=== PATIENT | male | born 1955 | race Caucasian/White ===

== ENCOUNTER → 2017-12-17 | Outpatient (REF) | payer MEDICARE, OTHER ==
[2017-12-17 19:36] LABS: RHEUMATOID FACTOR QUANT < 10.0 IU/ML (<15.0)
[2017-12-21 00:09] LABS: CYCLIC CITRULLINATED PEPTIDE 4 units (0-19)
== END ==
LOC: M LAB REF 17:18
DX: M25.559 Pain in unspecified hip (principal)
CPT/HCPCS: 86200

== ENCOUNTER → 2018-06-03 | Outpatient (REF) | payer MEDICARE, OTHER ==
[2018-06-03 17:51] LABS: RHEUMATOID FACTOR QUANT < 10.0 IU/ML (<15.0)
[2018-06-07 00:07] LABS: ANTINUCLEAR ANTIBODIES DIRECT Negative (Negative); Lyme Disease IgG/IgM Antibodie <0.91 ISR (0.00-0.90); Lyme Disease IgM Ab Quantitati <0.80 index (0.00-0.79)
== END ==
LOC: M LAB REF 16:54
DX: G89.29 Other chronic pain (principal); M25.50 Pain in unspecified joint
CPT/HCPCS: 86038

== ENCOUNTER → 2020-06-14 | Outpatient (CLI) | payer MEDICARE, OTHER ==
[~2020-06-14] MED LIST: ASPI325T56 PO; ATOR40TA75; BISO10TA14; CLOP75TA2; HYDR-3910; HYDR12.55; LOSA50TA88; MONT10TA4
== END ==
LOC: M LABSMTC 10:41
PROVIDERS: ATTEND Anesthesiology
DX: Z01.812 Encounter for preprocedural laboratory examination (principal); Z20.828 Contact with and (suspected) exposure to other viral communicable diseases
CPT/HCPCS: C9803; U0003

== ENCOUNTER 2020-06-19 08:58 | Day surgery (SDC) | payer MEDICARE, OTHER ==
[~2020-06-19] VITALS: Ht 175.3 cm; Wt 89.3 kg
[~2020-06-19 08:58] MED LIST changes: +NS 1,000 ML IV ONE
[2020-06-19] MEDS ORDERED: propofoL 200 MG/20 ML VIAL As Ordered ONE (09:03)
[2020-06-19] MEDS ORDERED: LIDOCAINE 2% 100MG/5ML SDV (FOR ANES.) As Ordered ONE (09:03)
--- NOTE | 2020-06-19 10:31 | ROOR ---
Patient Name: Ceasar Bryant Procedure Date: 06/19/2020 9:58 AM Date of : 1955 Age: 64 Room: [facility] Gender: Male Note Status: Finalized Procedure: Total Colonoscopy to Cecum + Cold Snare Polypectomy Indications: Screening for colorectal malignant neoplasm Providers: Lion Nick MD Referring MD: Chasidy Davila DO Requestarsh Provider: Medicines: Monitored Anesthesia Care Complications: No immediate complications. Procedure: Pre-Anesthesia Assessment: - The heart rate, respiratory rate, oxygen saturations, blood pressure, adequacy of pulmonary ventilation, and response to care were monitored throughout the procedure. The Colonoscope was introduced through the anus and advanced to the cecum, identified by appendiceal orifice and ileocecal valve. Findings: The perianal and digital rectal examinations were normal. Non-bleeding internal hemorrhoids were found during retroflexion. The hemorrhoids were small and Grade I (internal hemorrhoids that do not prolapse). Scattered small-mouthed diverticula were found in the recto-sigmoid colon and sigmoid colon. A small polyp was found at 20 cm proximal to the anus. The polyp was sessile. The polyp was removed with a cold snare. Resection and retrieval were complete. The exam was otherwise without abnormality on direct and retroflexion views. Impression: - Non-bleeding internal hemorrhoids. - Diverticulosis in the recto-sigmoid colon and in the sigmoid colon. - One small polyp at 20 cm proximal to the anus, removed with a cold snare. Resected and retrieved. - The examination was otherwise normal on direct and retroflexion views. Recommendation: - Patient has a contact number available for emergencies. The signs and symptoms of potential delayed complications were discussed with the patient. Return to normal activities tomorrow. Written discharge instructions were provided to the patient. - Discharge patient to home. - Continue present medications. - Await pathology results. - Repeat colonoscopy in 5 years for surveillance based on pathology results. - Return to referring physician. - The findings and recommendations were discussed with the patient. Lion Nick MD Lion Nick MD 06/19/2020 10:30:38 AM Electronically signed by Lion Nick MD Number of Addenda: 0 Note Initiated On: 06/19/2020 9:58 AM Estimated Blood Loss: Estimated blood loss: none.
[2020-06-19 10:46] VITALS: BP 111/55
== END 2020-06-19 11:01 | disposition home or self-care (01) ==
LOC: M OPP 08:58
PROVIDERS: ATTEND Internal Medicine Gastroenterology
DX: Z12.11 Encounter for screening for malignant neoplasm of colon (principal); K64.0 First degree hemorrhoids; K63.5 Polyp of colon; K57.30 Diverticulosis of large intestine without perforation or abscess without bleeding; F17.210 Nicotine dependence, cigarettes, uncomplicated; Z79.82 Long term (current) use of aspirin; Z79.899 Other long term (current) drug therapy

== ENCOUNTER → 2021-05-28 | Outpatient (CLI) | payer MEDICARE, OTHER ==
[~2021-05-28] MED LIST changes: +MONT10TA10; -MONT10TA4; -NS 1,000 ML IV ONE
--- NOTE | 2021-05-28 11:19 | REP ---
INDICATION: LUNG CANCER SCREENING COMPARISON: None. TECHNIQUE: Axial noncontrast images from the thoracic inlet to the upper abdomen using low-dose lung screening technique (LDCT). FINDINGS: Moderate emphysematous changes with minimal scattered scarring appreciated. Few subpleural nodular densities are noted-the largest of which is suggested along the periphery of the left upper lobe and measures 7 mm. Small scattered noncalcified perifissural densities are also noted up to approximately 5 mm. No acute consolidation. No effusion. No pneumothorax. Mediastinum demonstrates cardiomegaly with atherosclerotic changes and ascending aortic aneurysmal dilatation to approximately 4 cm maximal diameter. IMPRESSION: Lung-RADS category 3. Noncalcified subpleural nodule up to 7 mm. No prior examinations are available for comparison. Management recommendations include 6 month follow-up re-evaluation. Atherosclerotic disease with cardiomegaly and suspected aneurysmal dilatation to the ascending thoracic aorta measuring 4 cm maximal diameter. <Electronically signed by Dusty Perez > 05/28/21 [id number]
== END ==
LOC: M RAD 09:59
PROVIDERS: ATTEND Internal Medicine
DX: Z12.2 Encounter for screening for malignant neoplasm of respiratory organs (principal); R91.8 Other nonspecific abnormal finding of lung field; F17.210 Nicotine dependence, cigarettes, uncomplicated

== ENCOUNTER → 2021-11-27 | Outpatient (CLI) | payer MEDICARE, OTHER ==
[~2021-11-27] MED LIST changes: +LOSA50TA28; -LOSA50TA88; -MONT10TA10; +MONT10TA97
== END ==
LOC: M RAD 08:11
PROVIDERS: ATTEND Internal Medicine
DX: Z12.2 Encounter for screening for malignant neoplasm of respiratory organs (principal); F17.210 Nicotine dependence, cigarettes, uncomplicated

== ENCOUNTER 2022-01-26 20:16 | Inpatient (IN) | payer MEDICARE, OTHER ==
[~2022-01-26] VITALS: Ht 175.3 cm; Wt 88.2 kg
[~2022-01-26 20:16] MED LIST changes: -HYDR-3910; +HYDR-3910 PO; -LOSA50TA28; +LOSA50TA28 PO
[2022-01-26] MEDS ORDERED: CHLO125TA PO (20:32)
[2022-01-26 21:01] LABS: BASO # 0.1 10^3/uL (0.0-0.2); BASO % 0.5 % (0.0-1.0); EOS # 0.3 10^3/uL (0.0-0.5); HEMATOCRIT 39.6 % (42.0-52.0); HEMOGLOBIN 13.1 g/dl (13.5-17.5); LYMPH # 2.4 10^3/uL (1.5-5.0); LYMPH % 19.7 % (24.0-44.0); MEAN CORPUSCULAR HEMOGLOBIN 29.6 pg (27.0-33.0); MEAN CORPUSCULAR HGB CONC 33.1 g/dl (32.0-36.5); MEAN CORPUSCULAR VOLUME 89.4 fl (80.0-96.0); MONO # 0.9 10^3/uL (0.0-0.8); MONO % 7.1 % (2.0-8.0); NEUTROPHILS # 8.6 10^3/uL (1.5-8.5); NEUTROPHILS % 70.4 % (36.0-66.0); PLATELET COUNT, AUTOMATED 236 10^3/uL (150-450); RED BLOOD COUNT 4.43 10^6/uL (4.30-6.10); WHITE BLOOD COUNT 12.3 10^3/uL (4.0-10.0)
[2022-01-26] MEDS ORDERED: methylPREDNISolone 125MG 2ML VIAL IV ONE (21:15)
[2022-01-26] MEDS ORDERED: hydrALAZINE 20MG/ML 1ML VIAL (J0360 PER 20MG) IV ONE (21:35)
[2022-01-26 21:37] LABS: ALBUMIN 3.2 GM/DL (3.2-5.2); ALT/SGPT 18 U/L (12-78); BILIRUBIN,DIRECT 0.3 MG/DL (0.0-0.2); BLOOD UREA NITROGEN 12 MG/DL (7-18); CALCIUM LEVEL 9.1 MG/DL (8.8-10.2); CARBON DIOXIDE LEVEL 25 MEQ/L (21-32); CHLORIDE LEVEL 112 MEQ/L (98-107); CK-MB VALUE MASS < 1.0 NG/ML (<3.6); CPK CREATINE PHOSPHOKINASE 84 U/L (39-308); CREATININE FOR GFR 1.08 MG/DL (0.70-1.30); GLOMERULAR FILTRATION RATE > 60.0 (>49); GLUCOSE, FASTING 118 MG/DL (70-100); MB/CK RELATIVE INDEX 1.19 (< OR =4); POTASSIUM SERUM 3.6 MEQ/L (3.5-5.1); SODIUM LEVEL 144 MEQ/L (136-145); TOTAL PROTEIN 6.9 GM/DL (6.4-8.2)
[2022-01-26] MEDS ORDERED: ISOVUE-370 76% 100ML VIAL As Ordered ONE (21:54)
[2022-01-26 22:40] LABS: CK-MB VALUE MASS 1.3 NG/ML (<3.6); MB/CK RELATIVE INDEX 1.53 (< OR =4)
[2022-01-26] MEDS ORDERED: PIPERACILLIN/TAZOBACTAM SOD 3.375 GM in D5W MINI-BAG PLUS 50 ML IV ONE (23:30)
[2022-01-27] VITALS (14 sets, daily range): BP systolic 97–199; BP diastolic 55–95
[2022-01-27 00:30] LABS: CK-MB VALUE MASS 1.4 NG/ML (<3.6); MB/CK RELATIVE INDEX 1.59 (< OR =4)
[2022-01-27] MEDS ORDERED: ATOR40TA75 PO (03:30)
[2022-01-27] MEDS ORDERED: CLOP75TA2 PO (03:30)
[2022-01-27] MEDS ORDERED: BISO10TA14 PO (03:30)
[2022-01-27] MEDS ORDERED: LOSA100T45 PO (03:30)
[2022-01-27] MEDS ORDERED: MONT10TA97 PO (03:30)
[2022-01-27] MEDS ORDERED: HOME MED LIST COMPLETE! XX SCH (03:30)
[2022-01-27] MEDS ORDERED: ACET650T61 PO (03:30)
[2022-01-27] MEDS ORDERED: FUROSEMIDE 40 MG TAB PO STA (03:55)
[2022-01-27] MEDS ORDERED: METOPROLOL TART 12.5 MG PER 1/2 TAB PO SCH (05:00)
[2022-01-27] MEDS ORDERED: hydrALAZINE 20MG/ML 1ML VIAL (J0360 PER 20MG) IV PRN (06:50)
[2022-01-27 07:24] LABS: BASO % 0.3 % (0.0-1.0); HEMATOCRIT 42.6 % (42.0-52.0); HEMOGLOBIN 13.9 g/dl (13.5-17.5); LYMPH # 0.9 10^3/uL (1.5-5.0); LYMPH % 8.2 % (24.0-44.0); MEAN CORPUSCULAR HEMOGLOBIN 29.1 pg (27.0-33.0); MEAN CORPUSCULAR HGB CONC 32.6 g/dl (32.0-36.5); MEAN CORPUSCULAR VOLUME 89.1 fl (80.0-96.0); MONO # 0.2 10^3/uL (0.0-0.8); MONO % 1.7 % (2.0-8.0); NEUTROPHILS # 9.4 10^3/uL (1.5-8.5); NEUTROPHILS % 89.5 % (36.0-66.0); PLATELET COUNT, AUTOMATED 292 10^3/uL (150-450); RED BLOOD COUNT 4.78 10^6/uL (4.30-6.10); WHITE BLOOD COUNT 10.5 10^3/uL (4.0-10.0)
[2022-01-27 07:27] LABS: BLOOD UREA NITROGEN 12 MG/DL (7-18); CALCIUM LEVEL 9.1 MG/DL (8.8-10.2); CARBON DIOXIDE LEVEL 27 MEQ/L (21-32); CHLORIDE LEVEL 107 MEQ/L (98-107); CREATININE FOR GFR 1.07 MG/DL (0.70-1.30); GLOMERULAR FILTRATION RATE > 60.0 (>49); GLUCOSE, FASTING 159 MG/DL (70-100); POTASSIUM SERUM 3.9 MEQ/L (3.5-5.1); SODIUM LEVEL 140 MEQ/L (136-145)
[2022-01-27] MEDS ORDERED: ENOXAPARIN 40MG/0.4ML SYRINGE (J1650 PER 10MG) SC SCH (09:00)
== END 2022-01-27 10:39 | disposition short-term general hospital (02) | DRG 189 ==
LOC: EDBD 20:16 → M ED 20:16 → M ED INP 01-27 03:44 → ENRESERV 01-27 04:26 → M ICU 01-27 04:53
PROVIDERS: ADMIT Internal Medicine Pulmonary Disease; ATTEND Internal Medicine Pulmonary Disease
DX: J81.0 Acute pulmonary edema (principal); I21.4 Non-ST elevation (NSTEMI) myocardial infarction; G45.8 Other transient cerebral ischemic attacks and related syndromes; F17.210 Nicotine dependence, cigarettes, uncomplicated; I10 Essential (primary) hypertension; Z95.828 Presence of other vascular implants and grafts; I73.9 Peripheral vascular disease, unspecified; R79.89 Other specified abnormal findings of blood chemistry; Z79.82 Long term (current) use of aspirin; Z79.899 Other long term (current) drug therapy; Z20.822 Contact with and (suspected) exposure to COVID-19

== ENCOUNTER → 2022-03-30 | Outpatient (REF) | payer MEDICARE, OTHER ==
[~2022-03-30] MED LIST changes: +ACET650T61 PO; +ATOR40TA75 PO; +BISO10TA14 PO; +CHLO125TA PO; +CLOP75TA2 PO; +LOSA100T45 PO; +MONT10TA97 PO
[2022-03-31 18:09] LABS: PERCENT SATURATION 6.5 % (19.7-50.0)
== END ==
LOC: M LAB REF 16:45
PROVIDERS: ATTEND Internal Medicine
DX: D64.9 Anemia, unspecified (principal)

== ENCOUNTER → 2022-05-15 | Outpatient (REF) | payer MEDICARE, OTHER | LOC: M LAB REF 12:48 | PROVIDERS: ATTEND Internal Medicine | DX: R19.4 Change in bowel habit (principal); R63.5 Abnormal weight gain ==

== ENCOUNTER → 2022-06-05 | Outpatient (CLI) | payer MEDICARE, OTHER ==
[~2022-06-05] MED LIST changes: +E-Z-GAS II EFFERVESCENT PACKET (SODIUM BICARB./CITRIC ACID/SIMETHICONE) As Ordered ONE; +E-Z-HD 98% w/w 340GM SUSP BTL As Ordered ONE; +E-Z-PAQUE 96% w/w SUSP 176GM BTL As Ordered ONE
== END ==
LOC: M RAD 07:58
PROVIDERS: ATTEND Internal Medicine
DX: K21.9 Gastro-esophageal reflux disease without esophagitis (principal); D64.9 Anemia, unspecified; R13.10 Dysphagia, unspecified

== ENCOUNTER → 2022-11-17 | Outpatient (REF) | payer MEDICARE, OTHER ==
[~2022-11-17] MED LIST changes: -E-Z-GAS II EFFERVESCENT PACKET (SODIUM BICARB./CITRIC ACID/SIMETHICONE) As Ordered ONE; -E-Z-HD 98% w/w 340GM SUSP BTL As Ordered ONE; -E-Z-PAQUE 96% w/w SUSP 176GM BTL As Ordered ONE; +FERR324T21 PO; +HYDR100T PO; +METO50TA7 PO; +OMEP40CA5 PO; +PERCOCET PO
[2022-11-17 20:17] LABS: FERRITIN 21.4 NG/ML (10.5-307.3)
== END ==
LOC: M LAB REF 16:44
PROVIDERS: ATTEND Internal Medicine
DX: D50.9 Iron deficiency anemia, unspecified (principal)

== ENCOUNTER → 2022-11-18 | Outpatient (CLI) | payer MEDICARE, OTHER | LOC: M WUC 08:53 | PROVIDERS: ATTEND Internal Medicine | DX: M25.532 Pain in left wrist (principal) ==

== ENCOUNTER → 2022-12-24 | Outpatient (CLI) | payer MEDICARE, OTHER ==
[~2022-12-24] MED LIST changes: -LOSA100T45 PO; +LOSA100T46 PO
== END ==
LOC: M RAD 09:27
PROVIDERS: ATTEND Internal Medicine
DX: Z12.2 Encounter for screening for malignant neoplasm of respiratory organs (principal); Z87.891 Personal history of nicotine dependence; R91.8 Other nonspecific abnormal finding of lung field

== ENCOUNTER 2022-12-28 10:02 | Day surgery (SDC) | payer MEDICARE, OTHER ==
[~2022-12-28] VITALS: Ht 175.3 cm; Wt 88.6 kg
[~2022-12-28 10:02] MED LIST changes: +NS 1,000 ML IV ONE
[2022-12-28] MEDS ORDERED: fentaNYL 100 MCG/2 ML INJECTION As Ordered ONE (11:54)
[2022-12-28] MEDS ORDERED: propofoL 200 MG/20 ML VIAL As Ordered ONE (11:54)
[2022-12-28] MEDS ORDERED: LIDOCAINE 2% 100MG/5ML SDV (FOR ANES.) As Ordered ONE (11:54)
[2022-12-28 12:45] VITALS: BP 144/65
== END 2022-12-28 12:54 | disposition home or self-care (01) ==
LOC: M OPP 10:02
PROVIDERS: ATTEND Internal Medicine Gastroenterology
DX: K22.89 Other specified disease of esophagus (principal); R13.10 Dysphagia, unspecified; F17.290 Nicotine dependence, other tobacco product, uncomplicated; Z79.02 Long term (current) use of antithrombotics/antiplatelets; Z79.82 Long term (current) use of aspirin; Z79.891 Long term (current) use of opiate analgesic; Z79.899 Other long term (current) drug therapy
CPT/HCPCS: 43239; 88305; J3010

== ENCOUNTER → 2023-05-21 | Outpatient (CLI) | payer MEDICARE, OTHER ==
[~2023-05-21] MED LIST changes: -NS 1,000 ML IV ONE
== END ==
LOC: M WUC 08:28
PROVIDERS: ATTEND Internal Medicine
DX: M47.816 Spondylosis without myelopathy or radiculopathy, lumbar region (principal); M54.50 Low back pain, unspecified; M25.551 Pain in right hip; M25.552 Pain in left hip

== ENCOUNTER 2023-06-07 08:14 | Day surgery (SDC) | payer MEDICARE, OTHER ==
[~2023-06-07] VITALS: Ht 175.3 cm; Wt 83.5 kg
[~2023-06-07 08:14] MED LIST changes: +CYCLOPENTOLATE 1% OPHTH SOLN 2ML BTL OS SCH; +FLURBIPROFEN 0.03% OPHTH SOLN 2.5 ML OS SCH; +LIDOCAINE 1% SDV 5ML VIAL As Ordered ONE; +LR 1,000 ML IV SCH; +MIDAZOLAM INJ 2MG/2ML VIAL As Ordered ONE; +PHENYLEPHRINE 2.5% OPHTH SOL 2ML OS SCH; +fentaNYL 100 MCG/2 ML INJECTION As Ordered ONE
[2023-06-07] MEDS ORDERED: CEFUROXIME 1MG/0.1ML INTRACAMERAL INJ As Ordered ONE (08:48)
[2023-06-07] MEDS: TETRACAINE 0.5% OPHTH SOLN 4ML OS SCH ×2 (09:20→10:43)
[2023-06-07] MEDS ORDERED: hydrALAZINE 20MG/ML 1ML VIAL As Ordered ONE (10:44)
[2023-06-07] MEDS ORDERED: LABETALOL 100MG/20ML VIAL As Ordered ONE (10:53)
[2023-06-07 11:14] VITALS: BP 178/77; TEMP 97.4; O2SAT 98
== END 2023-06-07 11:42 | disposition home or self-care (01) ==
LOC: M SDC 08:14
PROVIDERS: ATTEND Ophthalmology
DX: H25.12 Age-related nuclear cataract, left eye (principal); I25.10 Atherosclerotic heart disease of native coronary artery without angina pectoris; I25.2 Old myocardial infarction; J30.2 Other seasonal allergic rhinitis; I10 Essential (primary) hypertension; Z86.718 Personal history of other venous thrombosis and embolism; Z79.899 Other long term (current) drug therapy; Z79.02 Long term (current) use of antithrombotics/antiplatelets; Z87.891 Personal history of nicotine dependence
CPT/HCPCS: 66984; J0360; J0697; J1920; J2250; J3010; V2632

== ENCOUNTER 2023-07-05 07:27 | Day surgery (SDC) | payer MEDICARE, OTHER ==
[~2023-07-05] VITALS: Ht 175.3 cm; Wt 85.1 kg
[~2023-07-05 07:27] MED LIST changes: +CEFUROXIME 1MG/0.1ML INTRACAMERAL INJ As Ordered ONE; +CYCLOPENTOLATE 1% OPHTH SOLN 2ML BTL OD SCH; -CYCLOPENTOLATE 1% OPHTH SOLN 2ML BTL OS SCH; +FLURBIPROFEN 0.03% OPHTH SOLN 2.5 ML OD SCH; -FLURBIPROFEN 0.03% OPHTH SOLN 2.5 ML OS SCH; -MIDAZOLAM INJ 2MG/2ML VIAL As Ordered ONE; +PHENYLEPHRINE 2.5% OPHTH SOL 2ML OD SCH; -PHENYLEPHRINE 2.5% OPHTH SOL 2ML OS SCH; +TETRACAINE 0.5% OPHTH SOLN 4ML OD SCH; -fentaNYL 100 MCG/2 ML INJECTION As Ordered ONE
[2023-07-05] MEDS ORDERED: MIDAZOLAM INJ 2MG/2ML VIAL As Ordered ONE (09:01)
[2023-07-05 09:25] VITALS: BP 182/75; TEMP 97.5; O2SAT 94
== END 2023-07-05 09:40 | disposition home or self-care (01) ==
LOC: M SDC 07:27
PROVIDERS: ATTEND Ophthalmology
DX: H25.11 Age-related nuclear cataract, right eye (principal); I10 Essential (primary) hypertension; I25.2 Old myocardial infarction; I25.10 Atherosclerotic heart disease of native coronary artery without angina pectoris; Z79.899 Other long term (current) drug therapy; Z95.1 Presence of aortocoronary bypass graft; Z86.718 Personal history of other venous thrombosis and embolism; E78.00 Pure hypercholesterolemia, unspecified; Z87.891 Personal history of nicotine dependence
CPT/HCPCS: 66984; J0697; J2250; V2632

== ENCOUNTER → 2023-12-23 | Outpatient (REF) | payer MEDICARE, OTHER ==
[~2023-12-23] MED LIST changes: -CEFUROXIME 1MG/0.1ML INTRACAMERAL INJ As Ordered ONE; -CYCLOPENTOLATE 1% OPHTH SOLN 2ML BTL OD SCH; -FLURBIPROFEN 0.03% OPHTH SOLN 2.5 ML OD SCH; -HYDR-3910 PO; +HYDR25TA87 PO; -LIDOCAINE 1% SDV 5ML VIAL As Ordered ONE; -LR 1,000 ML IV SCH; -PHENYLEPHRINE 2.5% OPHTH SOL 2ML OD SCH; -TETRACAINE 0.5% OPHTH SOLN 4ML OD SCH
[2023-12-23 18:51] LABS: PERCENT SATURATION 11.2 % (19.7-50.0)
[2023-12-23 18:55] LABS: FERRITIN 14.8 NG/ML (10.5-307.3)
== END ==
LOC: M LAB REF 16:38
PROVIDERS: ATTEND Internal Medicine Pulmonary Disease
DX: D50.9 Iron deficiency anemia, unspecified (principal)

== ENCOUNTER → 2024-03-09 | Outpatient (CLI) | payer MEDICARE, OTHER | LOC: M RAD 08:28 | PROVIDERS: ATTEND Internal Medicine | DX: Z12.2 Encounter for screening for malignant neoplasm of respiratory organs (principal); F17.211 Nicotine dependence, cigarettes, in remission ==

== ENCOUNTER → 2024-05-29 | Outpatient (REF) | payer MEDICARE, OTHER ==
[2024-05-29 15:38] LABS: PERCENT SATURATION 8.9 % (19.7-50.0)
[2024-05-29 15:42] LABS: FERRITIN 12.5 NG/ML (10.5-307.3)
== END ==
LOC: M LAB REF 12:31
PROVIDERS: ATTEND Internal Medicine
DX: D50.9 Iron deficiency anemia, unspecified (principal)

== ENCOUNTER 2024-09-04 12:32 | Day surgery (SDC) | payer MEDICARE, OTHER ==
[~2024-09-04] VITALS: Ht 175.3 cm; Wt 91.1 kg
[~2024-09-04 12:32] MED LIST changes: +FERR32TA PO
[2024-09-04] MEDS ORDERED: fentaNYL 100 MCG/2 ML INJECTION As Ordered ONE (13:23)
[2024-09-04] MEDS ORDERED: propofoL 200 MG/20 ML VIAL As Ordered ONE (13:23)
[2024-09-04 14:20] VITALS: TEMP 98.6
[2024-09-04 14:47] VITALS: BP 186/80; O2SAT 94
== END 2024-09-04 14:55 | disposition home or self-care (01) ==
LOC: M OPP 12:32
PROVIDERS: ATTEND Internal Medicine Gastroenterology
DX: D12.2 Benign neoplasm of ascending colon (principal); K21.00 Gastro-esophageal reflux disease with esophagitis, without bleeding; D50.9 Iron deficiency anemia, unspecified; K64.0 First degree hemorrhoids; K57.30 Diverticulosis of large intestine without perforation or abscess without bleeding; K22.89 Other specified disease of esophagus; K31.89 Other diseases of stomach and duodenum; I25.10 Atherosclerotic heart disease of native coronary artery without angina pectoris; I25.2 Old myocardial infarction; I10 Essential (primary) hypertension; E78.00 Pure hypercholesterolemia, unspecified; M19.90 Unspecified osteoarthritis, unspecified site; F43.10 Post-traumatic stress disorder, unspecified; Z86.718 Personal history of other venous thrombosis and embolism; Z87.891 Personal history of nicotine dependence; Z91.048 Other nonmedicinal substance allergy status; Z79.899 Other long term (current) drug therapy
CPT/HCPCS: 43239; 45385; 88305; J3010

== ENCOUNTER → 2024-10-18 | Outpatient (REF) | payer MEDICARE, OTHER ==
[2024-10-18 19:05] LABS: ALBUMIN 3.5 G/DL (3.2-5.2); BILIRUBIN,TOTAL 0.4 MG/DL (0.3-1.2); CALCIUM LEVEL 8.9 MG/DL (8.3-10.6); CREATININE FOR GFR 1.27 MG/DL (0.70-1.30); GLOMERULAR FILTRATION RATE 59.9 (>49); TOTAL PROTEIN 7.1 G/DL (5.7-8.2)
== END ==
LOC: M LABWUC 17:36
PROVIDERS: ATTEND Nurse Practitioner Acute Care
DX: I10 Essential (primary) hypertension (principal)

== ENCOUNTER → 2024-11-27 | Outpatient (REF) | payer MEDICARE, OTHER ==
[2024-11-27 12:48] LABS: FERRITIN 16.6 NG/ML (10.5-307.3); PERCENT SATURATION 13.9 % (19.7-50.0)
== END ==
LOC: M LAB REF 12:05
PROVIDERS: ATTEND Internal Medicine
DX: D50.9 Iron deficiency anemia, unspecified (principal)

== ENCOUNTER → 2025-04-19 | Outpatient (CLI) | payer MEDICARE, OTHER | LOC: M PLAIMG 10:31 | PROVIDERS: ATTEND Physician Assistant | DX: R91.8 Other nonspecific abnormal finding of lung field (principal) ==

== ENCOUNTER → 2025-05-10 | Outpatient (CLI) | payer MEDICARE, OTHER ==
[2025-05-10 18:57] LABS: CREATININE FOR GFR 1.34 MG/DL (0.70-1.30); GLOMERULAR FILTRATION RATE 57.0 (>42)
== END ==
LOC: M WUC 13:19
PROVIDERS: ATTEND Physician Assistant
DX: I65.23 Occlusion and stenosis of bilateral carotid arteries (principal); I73.9 Peripheral vascular disease, unspecified

== ENCOUNTER → 2025-05-18 | Outpatient (CLI) | payer MEDICARE, OTHER ==
[~2025-05-18] MED LIST changes: +ISOVUE-370 76% 100 ML VIAL As Ordered ONE
== END ==
LOC: M RAD 14:18
PROVIDERS: ATTEND Surgery Vascular Surgery
DX: I65.23 Occlusion and stenosis of bilateral carotid arteries (principal); I66.02 Occlusion and stenosis of left middle cerebral artery; D37.030 Neoplasm of uncertain behavior of the parotid salivary glands
CPT/HCPCS: 70496; 70498; Q9967

== ENCOUNTER → 2025-05-21 | Outpatient (REF) | payer MEDICARE, OTHER ==
[~2025-05-21] MED LIST changes: -ISOVUE-370 76% 100 ML VIAL As Ordered ONE
[2025-05-21 14:35] LABS: IRON (FE) 73.0 UG/DL (65-175)
[2025-05-21 14:36] LABS: PERCENT SATURATION 21.3 % (19.7-50.0)
[2025-05-21 14:38] LABS: VITAMIN B12 LEVEL 411.0 PG/ML (211-911)
== END ==
LOC: M LAB REF 12:21
PROVIDERS: ATTEND Internal Medicine
DX: D50.9 Iron deficiency anemia, unspecified (principal)

== ENCOUNTER → 2025-06-01 | Outpatient (CLI) | payer MEDICARE, OTHER ==
[~2025-06-01] MED LIST changes: +ISOVUE-370 76% 100 ML VIAL As Ordered ONE
== END ==
LOC: M RAD 14:42
PROVIDERS: ATTEND Surgery Vascular Surgery
DX: I73.9 Peripheral vascular disease, unspecified (principal)
CPT/HCPCS: 75635; Q9967